=== PATIENT | male | born 1985 | race Hispanic/Latino ===

== ENCOUNTER 2016-10-08 21:09 | Emergency (ER) | payer BC, OTHER ==
[2016-10-09 04:04] VITALS: BP 122/75
--- NOTE | 2016-10-09 05:35 | XRay Report ---
FINAL REPORT PROCEDURE: XR HAND 3 LT TECHNIQUE: LEFT hand radiographs, AP, lateral, and oblique views. CPT 35366-PK HISTORY: Tender of 5th metacarpal COMPARISON: No prior studies are available for comparison. FINDINGS: Fracture (s) and/or Dislocation(s): None . Alignment: Normal . Joint space(s): Normal . Soft tissues: Normal . Bone mineralization: Normal . Foreign bodies: None . IMPRESSION: Normal Examination .
[2016-10-09] MEDS: MOTRIN PO ONE (05:43)
[2016-10-09] MEDS: FLEXERIL PO ONE (05:43)
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
== END 2016-10-09 06:23 | disposition home or self-care (01) ==
LOC: ED 21:09
DX: S16.1XXA Strain of muscle, fascia and tendon at neck level, initial encounter (principal); M79.642 Pain in left hand; F17.200 Nicotine dependence, unspecified, uncomplicated; V49.9XXA Car occupant (driver) (passenger) injured in unspecified traffic accident, initial encounter; W22.11XA Striking against or struck by driver side automobile airbag, initial encounter; Y93.89 Activity, other specified; Y99.8 Other external cause status; Y92.89 Other specified places as the place of occurrence of the external cause
CPT/HCPCS: 99283